=== PATIENT | female | born 1945 | race Caucasian/White ===

== ENCOUNTER 2016-11-01 13:25 | Outpatient (CLI) | payer MEDICARE, OTHER ==
--- NOTE | 2016-11-02 11:10 | Mammography Report ---
DIGITAL SCREENING MAMMOGRAM: 11/01/2016 CLINICAL INDICATION: A 71-year-old, for screening. COMPARISON: 01/2015, 11/2013, 11/2012, 05/2010, 07/2007, 07/2006. TECHNIQUE: Routine CC and MLO projections were obtained of the breasts. FINDINGS: The breasts again demonstrate scattered fibroglandular densities bilaterally. Punctate, ty pically benign calcifications are present. No suspicious masses, clustered microcalcifications, or re gions of architectural distortion are identified. IMPRESSION: BENIGN FINDINGS. RECOMMENDATION: ROUTINE ANNUAL SCREENING UNLESS OTHERWISE CLINICALLY INDICATED. BIRADS CATEGORY 2-BENIGN FINDINGS. STANDARD QUALIFYING STATEMENTS 1. This examination was reviewed with the aid of Computer-Aided Detection (CAD). 2. A negative or benign imaging report should not delay biopsy if clinically suspicious findings are present. Consider surgical consultation if warranted. More than 5% of cancers are not identified by i maging. 3. Dense breasts may obscure an underlying neoplasm. :9 JOB #: [id number] EXT JOB #:[id number]
== END 2016-11-01 13:26 | disposition home or self-care (01) ==
LOC: DI 13:25
PROVIDERS: ATTEND Obstetrics & Gynecology
DX: Z12.31 Encounter for screening mammogram for malignant neoplasm of breast (principal)
CPT/HCPCS: 77067

== ENCOUNTER 2017-02-02 08:00 | Outpatient (CLI) | payer MEDICARE, OTHER ==
[2017-02-02 13:15] LABS: BASOPHILS # (AUTO) 0.1 10^3/uL (0.0-0.1); BASOPHILS % (AUTO) 1.4 %; EOSINOPHILS # (AUTO) 0.2 10^3/uL (0.0-0.7); EOSINOPHILS % (AUTO) 3.3 %; HCT - HEMATOCRIT 42.8 % (37.0-47.0); HGB - HEMOGLOBIN 14.1 g/dL (12.0-16.0); LYMPHOCYTES # (AUTO) 2.1 10^3/uL (1.5-3.5); LYMPHOCYTES % (AUTO) 42.9 %; MEAN CORPUSCULAR HEMOGLOBIN 29.3 pg (27.0-31.0); MEAN CORPUSCULAR VOLUME 88.6 fL (81.0-99.0); MEAN PLATELET VOLUME 7.6 fL (7.9-10.8); MONOCYTES # (AUTO) 0.5 10^3/uL (0.0-1.0); MONOCYTES % (AUTO) 11.1 %; NEUTROPHILS % (AUTO) 41.3 %; NUCLEATED RED BLOOD CELLS AUTO 0.1 /100WBC; RED BLOOD COUNT 4.83 10^6/uL (4.20-5.40); RED CELL DISTRIBUTION WIDTH 14.1 % (12.0-15.0); UNCORRECTED WHITE BLOOD COUNT 4.9 x10^3/uL; WHITE BLOOD COUNT 4.9 x10^3/uL (4.8-10.8)
[2017-02-02 13:36] LABS: ALBUMIN/GLOBULIN RATIO 1.3 (1.0-2.2); BILIRUBIN,TOTAL 0.5 mg/dL (0.2-1.0); BUN - BLOOD UREA NITROGEN 12 mg/dL (6-20); CALCIUM 9.3 mg/dL (8.5-10.3); CARBON DIOXIDE - CO2 27 mmol/L (21-32); CHLORIDE 103 mmol/L (101-111); CHOL/HDL RATIO 3.4 (<4.4); CHOLESTEROL 228 mg/dL; CREATININE 0.7 mg/dL (0.4-1.0); GFR - MDRD 82 (>89); GLUCOSE 92 mg/dL (70-100); HDL CHOLESTEROL 67 mg/dL; LDL/HDL RATIO 2.1 (<4.4); POTASSIUM 4.1 mmol/L (3.5-5.0); SODIUM 136 mmol/L (135-145); TOTAL PROTEIN 7.5 g/dL (6.7-8.2); TRIGLYCERIDES 94 mg/dL; VLDL CHOLESTEROL 19 mg/dL
== END 2017-02-02 23:59 ==
LOC: LAB.WCP 08:00
PROVIDERS: ATTEND Family Medicine
DX: I10 Essential (primary) hypertension (principal); Z51.81 Encounter for therapeutic drug level monitoring
CPT/HCPCS: 36415; 80053; 80061; 84443; 85025

== ENCOUNTER 2017-02-28 14:58 | Outpatient (CLI) | payer MEDICARE, OTHER ==
[2017-02-28 19:28] LABS: BASOPHILS # (AUTO) 0.1 10^3/uL (0.0-0.1); BASOPHILS % (AUTO) 0.9 %; EOSINOPHILS % (AUTO) 0.3 %; HGB - HEMOGLOBIN 14.2 g/dL (12.0-16.0); LYMPHOCYTES % (AUTO) 29.6 %; MEAN CORPUSCULAR HEMOGLOBIN 28.6 pg (27.0-31.0); MEAN CORPUSCULAR HGB CONC 32.2 g/dL (32.0-36.0); MEAN CORPUSCULAR VOLUME 88.7 fL (81.0-99.0); MEAN PLATELET VOLUME 7.7 fL (7.9-10.8); MONOCYTES # (AUTO) 0.6 10^3/uL (0.0-1.0); NEUTROPHILS # (AUTO) 4.1 10^3/uL (1.5-6.6); NEUTROPHILS % (AUTO) 60.2 %; PLT - PLATELET COUNT 403 10^3/uL (130-450); RED BLOOD COUNT 4.98 10^6/uL (4.20-5.40); RED CELL DISTRIBUTION WIDTH 14.2 % (12.0-15.0); WHITE BLOOD COUNT 6.8 x10^3/uL (4.8-10.8)
[2017-02-28 19:31] LABS: ALBUMIN 4.4 g/dL (3.2-5.5); ALBUMIN/GLOBULIN RATIO 1.2 (1.0-2.2); BILIRUBIN,TOTAL 0.5 mg/dL (0.2-1.0); CALCIUM 9.9 mg/dL (8.5-10.3); CREATININE 0.7 mg/dL (0.4-1.0)
== END 2017-02-28 14:59 | disposition home or self-care (01) ==
LOC: LAB.WCP 14:58
PROVIDERS: ATTEND Physician Assistant Medical
DX: R07.9 Chest pain, unspecified (principal)
CPT/HCPCS: 36415; 80053; 84484; 85025

== ENCOUNTER 2017-07-11 08:00 | Outpatient (CLI) | payer MEDICARE, OTHER ==
[2017-07-11 21:25] LABS: H. PYLORIS ANTIGEN STL NEGATIVE (Negative)
== END 2017-07-11 08:01 | disposition home or self-care (01) ==
LOC: LAB.WCP 08:00
PROVIDERS: ATTEND Family Medicine
DX: R19.7 Diarrhea, unspecified (principal)
CPT/HCPCS: 81599; 83630; 87045; 87046; 87177; 87209; 87329; 87338; 87493

== ENCOUNTER 2017-09-13 12:04 | Day surgery (SDC) | payer MEDICARE, OTHER ==
[2017-09-13] MEDS ORDERED: LACTATED RINGERS 1,000 ML IV ONE ×2 (12:32→16:18)
[2017-09-13] MEDS ORDERED: fentaNYL 250 MCG/5 ML VIAL IVP ONE (15:15)
[2017-09-13 16:21] VITALS: BP 132/63
== END 2017-09-13 12:05 | disposition home or self-care (01) ==
LOC: SDS 12:04
PROVIDERS: ATTEND Internal Medicine Gastroenterology
PROC: 0DBL8ZX Excision of Transverse Colon, Via Natural or Artificial Opening Endoscopic, Diagnostic (ICD-10-PCS; 2017-09-13)
PROC: 0DBN8ZX Excision of Sigmoid Colon, Via Natural or Artificial Opening Endoscopic, Diagnostic (ICD-10-PCS; 2017-09-13)
PROC: 0DBP8ZX Excision of Rectum, Via Natural or Artificial Opening Endoscopic, Diagnostic (ICD-10-PCS; 2017-09-13)
PROC: 0DBM8ZX Excision of Descending Colon, Via Natural or Artificial Opening Endoscopic, Diagnostic (ICD-10-PCS; 2017-09-13)
PROC: 0DBK8ZX Excision of Ascending Colon, Via Natural or Artificial Opening Endoscopic, Diagnostic (ICD-10-PCS; principal; 2017-09-13 13:15)
DX: R19.7 Diarrhea, unspecified (principal); K52.9 Noninfective gastroenteritis and colitis, unspecified; I10 Essential (primary) hypertension; K21.9 Gastro-esophageal reflux disease without esophagitis
CPT/HCPCS: 45380; J3010; J7120

== ENCOUNTER 2017-09-18 08:46 | Outpatient (CLI) | payer MEDICARE, OTHER | END 2017-09-18 08:47 | disposition home or self-care (01) | LOC: LAB 08:46 | PROVIDERS: ATTEND Internal Medicine Gastroenterology | DX: R19.7 Diarrhea, unspecified (principal) | CPT/HCPCS: 36415; 82784; 83516 ==

== ENCOUNTER 2018-04-15 16:08 | Observation (INO) | payer MEDICARE, OTHER ==
[2018-04-15] MEDS ORDERED: METOPROLOL TARTRATE 50 MG TABLET PO STA (16:26)
[2018-04-15] MEDS ORDERED: NITROGLYCERIN SL 0.4 MG TABLET SL STA (16:26)
[2018-04-15] MEDS ORDERED: ASPIRIN CHEW 81 MG TABLET PO STA (16:26)
--- NOTE | 2018-04-15 16:29 | ED Physician Documentation ---
PD HPI CHEST PAIN - Stated complaint Stated Complaint: CP - Chief complaint Chief Complaint: Cardiac - History obtained from History obtained from: Patient - History of Present Illness Timing - onset: Today (This is a 73-year-old woman with history of hypertension but no cardiac issues who developed dull substernal chest pressure and left breast pressure without other radiation about 2 hours ago. Pain is pretty strong. It started with light activity around the house. She denies back pain, cough, shortness of breath, diaphoresis, or nausea.) Review of Systems Ten Systems: 10 systems reviewed and negative Constitutional: reports: Sweats. denies: Fever, Chills Nose: denies: Rhinorrhea / runny nose, Congestion Cardiac: denies: Palpitations, Pedal edema, Calf pain Respiratory: denies: Dyspnea, Cough PD PAST MEDICAL HISTORY - Past Medical History Cardiovascular: Hypertension Respiratory: None Endocrine/Autoimmune: None GI: GERD Psych: None Musculoskeletal: Osteoarthritis, Chronic back pain - Past Surgical History Past Surgical History: Yes Ortho: Arthroscopic surgery - Present Medications Home Medications: Ambulatory Orders Medication Instructions Recorded Confirmed Rabeprazole Sodium [Aciphex] 20 mg PO BID 01/26/13 09/12/17 Ranitidine HCl [Deprizine] 15 mg PO DAILY 01/26/13 09/12/17 Fexofenadine/Pseudoephedrine 1 each PO DAILY 09/12/17 09/12/17 [Elena-D 24 Hour Tablet] Losartan Potassium 50 mg PO DAILY 09/12/17 09/12/17 Multivit-Min/Iron Fum/Folic AC 1 each PO DAILY 09/12/17 09/12/17 [Xjpjs-Hfsiiix-Bqrgbjtr Tablet] Sucralfate [Carafate] 1 gm PO ACHS PRN 09/12/17 09/12/17 - Allergies Allergies/Adverse Reactions: Allergies Allergy/AdvReac Type Severity Reaction Status Date / Time pantoprazole [From Protonix] Allergy Mild Unknown Verified 09/13/17 12:45 gluten AdvReac Unknown Verified 09/13/17 12:45 - Social History Does the pt smoke?: No Smoking Status: Never smoker Does the pt drink ETOH?: No Does the pt have substance abuse?: No - Immunizations Immunizations are current?: Yes - POLST Patient has POLST: No PD ED PE NORMAL - Vitals Vital signs reviewed: Yes - General General: Alert and oriented X 3, No acute distress - HEENT HEENT: PERRL, EOMI - Neck Neck: Supple, no meningeal sign, No bony TTP - Cardiac Cardiac: RRR, No murmur - Respiratory Respiratory: No respiratory distress, Clear bilaterally - Abdomen Abdomen: Soft, Non tender - Back Back: No CVA TTP, No spinal TTP - Extremities Extremities: No edema, No calf tenderness / cord - Neuro Neuro: Alert and oriented X 3, Normal speech Results - Vitals Vitals: Vital Signs - 24 hr 04/15/18 16:24 Temperature 36.6 C Heart Rate 72 Respiratory 16 Rate Blood Pressure 145/80 H O2 Saturation 97 Oxygen O2 Source Room air - EKG (time done) 1620 Rate: Rate (enter#) (88) Rhythm: NSR (With premature ventricular contractions) Victor: LAD Intervals: Normal LA Ischemia: Q waves (anterior), Non specific changes. No: ST elevation c/w ischemia Computer interpretation: Agree with computer - Labs Labs: Laboratory Tests 04/15/18 04/15/18 04/15/18 16:36 16:36 16:36 WBC 9.2 RBC 4.96 Hgb 14.6 Hct 43.6 MCV 88.0 MCH 29.4 MCHC 33.4 RDW 14.9 Plt Count 325 MPV 7.0 L Neut # (Auto) 5.9 Lymph # (Auto) 2.5 [place] # (Auto) 0.7 Eos # (Auto) 0.1 Baso # (Auto) 0.1 Absolute Nucleated RBC 0.00 Nucleated RBC % 0.0 Sodium 134 L Potassium 3.7 Chloride 100 L Carbon Dioxide 26 Anion Gap 8.0 BUN 17 Creatinine 0.9 Estimated GFR (MDRD) 61 L Glucose 118 H Calcium 9.3 Total Bilirubin 0.4 AST 23 ALT 20 Alkaline Phosphatase 82 Total Creatine Kinase 71 CK-MB (CK-2) 2.4 Troponin I < 0.04 Total Protein 7.3 Albumin 4.0 Globulin 3.3 Albumin/Globulin Ratio 1.2 Lipase 34 - Rads (name of study) 1v chest Radiology: EMP read contemporaneously (NAD) PD MEDICAL DECISION MAKING - ED course ED course: This is a 73-year-old woman who presents with new any acutely concerning chest pain which improved but did not completely go away after nitroglycerin. She was also given aspirin and metoprolol in the department. Her EKG is relatively nonischemic and her initial biomarkers are negative. Given the time course she will need a formal rule out and I called the hospitalist for observation at 5:05 PM. Departure - Departure Disposition: ED Place in Observation Clinical Impression: Chest pain Qualifiers: Chest pain type: precordial pain Qualified Code(s): R07.2 - Precordial pain Condition: Stable
[2018-04-15 16:42] LABS: BASOPHILS # (AUTO) 0.1 10^3/uL (0.0-0.1); BASOPHILS % (AUTO) 0.6 %; EOSINOPHILS # (AUTO) 0.1 10^3/uL (0.0-0.7); HGB - HEMOGLOBIN 14.6 g/dL (12.0-16.0); LYMPHOCYTES # (AUTO) 2.5 10^3/uL (1.5-3.5); LYMPHOCYTES % (AUTO) 27.4 %; MEAN CORPUSCULAR HEMOGLOBIN 29.4 pg (27.0-31.0); MEAN CORPUSCULAR HGB CONC 33.4 g/dL (32.0-36.0); MONOCYTES # (AUTO) 0.7 10^3/uL (0.0-1.0); MONOCYTES % (AUTO) 7.2 %; NEUTROPHILS # (AUTO) 5.9 10^3/uL (1.5-6.6); NEUTROPHILS % (AUTO) 63.8 %; PLT - PLATELET COUNT 325 10^3/uL (130-450); RED BLOOD COUNT 4.96 10^6/uL (4.20-5.40); RED CELL DISTRIBUTION WIDTH 14.9 % (12.0-15.0); WHITE BLOOD COUNT 9.2 x10^3/uL (4.8-10.8)
[2018-04-15 16:54] LABS: ALBUMIN/GLOBULIN RATIO 1.2 (1.0-2.2); BILIRUBIN,TOTAL 0.4 mg/dL (0.2-1.0); CALCIUM 9.3 mg/dL (8.5-10.3); CREATININE 0.9 mg/dL (0.4-1.0); TOTAL PROTEIN 7.3 g/dL (6.7-8.2)
--- NOTE | 2018-04-15 16:58 | XRAY Report ---
Reason: chest pain Procedure Date: 04/15/2018 Accession Number: [id number] / [id number] Procedure: XR - Chest 1 View X-Ray CPT Code: 32009 FULL RESULT: EXAM: CHEST RADIOGRAPHY EXAM DATE: 04/15/2018 04:40 PM. CLINICAL HISTORY: Chest pain. COMPARISON: CHEST 2 VIEW 02/28/2017 3:07 PM. TECHNIQUE: 1 view. FINDINGS: Lungs/Pleura: Atelectasis or scarring left base similar to previous exam. No definite acute infiltrate, consolidation, effusion, or pneumothorax. Mediastinum: Within exam limitations, the cardiomediastinal contour is normal. Upper lobe vessels not distended. Other: Osteopenia, degenerative changes. IMPRESSION: No acute disease. RADIA
[2018-04-15 17:00] LABS: TROPONIN I < 0.04 ng/mL (<0.49)
[2018-04-15 17:02] LABS: CREATINE KINASE MB 2.4 ng/mL (0.6-6.3)
[2018-04-15] MEDS ORDERED: ACETAMINOPHEN 325 MG TABLET PO PRN (17:20)
[2018-04-15] MEDS ORDERED: ONDANSETRON 4 MG/2 ML VIAL IVP PRN (17:20)
[2018-04-15] MEDS ORDERED: ONDANSETRON ODT 4 MG TABLET TL PRN (17:20)
[2018-04-15] MEDS ORDERED: SODIUM CHLORIDE FLUSH 0.9% 10 ML SYRINGE IVP PRN (17:20)
[2018-04-15] MEDS ORDERED: TEMAZEPAM 15 MG CAPSULE PO PRN (17:20)
[2018-04-15] MEDS ORDERED: oxyCODONE 5 MG TABLET PO PRN (17:20)
[2018-04-15] MEDS ORDERED: NITROGLYCERIN SL 0.4 MG TABLET SL PRN (17:23)
[2018-04-15] MEDS ORDERED: ATORVASTATIN 40 MG TABLET PO SCH (21:00)
[2018-04-15] MEDS: SODIUM CHLORIDE FLUSH 0.9% 10 ML SYRINGE IVP SCH (23:50)
--- NOTE | 2018-04-16 00:34 | CONSULTATION NOTE ---
DATE OF SERVICE: 04/15/2018 Physician: Leila Mejía MD PRIMARY CARE PROVIDER: Bola Arcos MD. ADMITTING PROVIDER: Leila Mejía MD. CHIEF COMPLAINT: Chest pain. HISTORY OF PRESENT ILLNESS: She is a 73-year-old white female whose risk factors for coronary artery disease are age and hypertension. She has never had diabetes, is a nonsmoker, has a negative family. She does have documented reflux disease and that does give her chest pain. It is a central pain that radiates to either side of her chest and accompanied with almost a stabbing pain, reflux. She even had a stress test in her doctor's office seven to eight years ago for that type of chest pain. It was negative. Today she started having left-sided chest pain over her left breast. It started while she was doing light activity around the house. She has not had this type of chest pain before. There is no radiation to the jaw or shoulder. There is no radiation down the left arm. Denied nausea, diaphoresis. No shortness of breath or palpitations. In the recent few weeks, she has not been ill, she has not been coughing, there is no edema, no orthopnea. She has not had any recent travel. Her legs are not swollen. She was evaluated in the emergency room by Dr. Medina, where she was afebrile, normotensive, oxygenating normally. She had a negative physical exam, and an EKG that was normal. Initial troponin is less than 0.04. She is now placed in observation for rule-out HI. PAST MEDICAL HISTORY 1. Hypertension. 2. Chronic low back pain that is mild and intermittent. 3. Gastroesophageal reflux disease. 4. History of migraine headache. 5. Foot surgery to remove a benign tumor. 6. Chronic diarrhea for 13 weeks that was very severe. Colonoscopy in August 2017 showed her to have diffuse edema of the bowel, and a nonspecific colitis on pathology. That diarrhea has now gone away. 7. G2, P2. 8. Nonspecific dermatitis in the last year. Her food safety director has had her change her sheets, changed laundry detergent, use some topical creams and it is much better. She also takes fexofenadine for it. ALLERGIES 1. PANTOPRAZOLE. 2. GLUTEN. MEDICATIONS 1. Fexofenadine with Sudafed 1 tablet daily. 2. Losartan 50 mg daily. 3. Multivitamin with iron and folic acid daily. 4. Rabeprazole sustained release 20 mg b.i.d. 5. Ranitidine 50 mg daily. 6. Sucralfate 1 g p.o. before meals and at bedtime. SOCIAL HISTORY: She is from [place]. 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 She has been to her for 45 years, [place] She never smoked. She rarely drinks alcohol. Has no history of recreational substance abuse. FAMILY HISTORY: Dad at age 85 of an HI. Drove himself 7 miles to his doctor's office; the two steps to get into the office were too much, and he sat down on the steps. Finally got his wind back, stepped into the doctor's waiting room, and promptly . Mom at age 88 of a brain aneurysm. Ten siblings. They are all alive. One has diabetes, one has thyroid disease, and there are no other medical problems. Two children are completely healthy. REVIEW OF SYSTEMS CONSTITUTIONAL: She has had no recent weight changes, fevers, sweats or fatigue. HEENT: She wears glasses. Has already had cataract taken off. She has a postnasal drip at night. Causes her to clear her throat quite a bit. Otherwise, hears well, swallows well. No facial dysesthesias. PULMONARY: Cough all the time from the postnasal drip, but there is no phlegm, no shortness of breath, no change in cardiovascular endurance. Denies any chronic bronchitis or asthma problems. CARDIOVASCULAR: Chest pain is strictly from reflux disease in the past. This is a new chest pain, but again, review of systems as above. GASTROINTESTINAL: Diarrhea from this last summer has completely resolved. No blood in her stool. Up-to-date with colonoscopies. GENITOURINARY: No urgency, frequency, dysuria, hematuria, or flank pain. JOINTS: Really do not bother her very much. No effusions, no fractures. SKIN: Nonspecific contact dermatitis as above. No other moles or lesions. PSYCHIATRIC: Denies depression, anxiety. 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 PHYSICAL EXAMINATION VITAL SIGNS: She is examined in her room with her at the bedside. Temperature is 36.6, pulse is 79, blood pressure 156/97, respirations 20 and unlabored. She is 96% on room air. She is 5 feet 6 inches tall, 80.7 kg. GENERAL: She is an alert, oriented, pleasant female, who looks her stated age, well-groomed, well-nourished. HEAD AND NECK: Glasses are in place, pupils reactive, no facial asymmetry. Speech normal. Upper teeth slightly protuberant. Neck is supple without goiter, bruits or jugular venous distention. LUNGS: Clear to auscultation and percussion. No crackles, rhonchi or wheezing. CARDIAC: Exam shows PMI normally placed with a regular rate and rhythm. No murmur. ABDOMEN: Soft, nontender. No organomegaly. Normal bowel sounds. EXTREMITIES: Without clubbing, cyanosis, or edema. Good foot pulses. SKIN: Warm, dry, normal color. NEUROLOGIC: She is alert and oriented to person, place and time. Cranial nerves II-XII. Normal upper and lower body strength. No ataxia. LABORATORY DATA: White cell count 9.2, hemoglobin 14.6, hematocrit 43.6, platelets 325. Sodium 134, potassium 3.7, BUN 17, creatinine 0.9, GFR 61, random glucose 118. Troponin less than 0.04. Chest x-ray is without any acute cardiopulmonary changes. EKG has normal sinus rhythm with PVCs. Left axis deviation, poor R-wave progression. She does not have isoelectric changes until V5. This is being read as an old anteroseptal HI. ASSESSMENT/PLAN 1. Chest pain. This pain does seem typical of exertion, and fits her age group. Pain is relieved by sublingual nitroglycerin. PLAN: Observation stay. Attestation: The patient will be discharged within 96 hours. Rule out HI with serial cardiac enzymes. Statin given for tonight. Aspirin already given and will be given in the morning. Nuclear medicine Lexiscan ordered for tomorrow and nuclear medicine notified. 2. Hypertension. At this time controlled. She is 113-132 since she has gotten to the floor. She will get her losartan in the morning. 3. Coronary risk factor assessment. Check fasting lipid panel in the morning. Glucose is elevated, check A1c. 4. Deep vein thrombosis prophylaxis with UMM hose. 5. DO NOT RESUSCITATE status in the event of significant prolonged illness resulting in debility. TD: 04/15/2018 19:01 NATHALIE
[2018-04-16 04:51] LABS: CREATININE 0.8 mg/dL (0.4-1.0)
[2018-04-16] MEDS: SODIUM CHLORIDE FLUSH 0.9% 10 ML SYRINGE IVP SCH (08:41)
[2018-04-16] MEDS ORDERED: ASPIRIN EC 81 MG TABLET PO SCH (09:00)
[2018-04-16] MEDS ORDERED: LOSARTAN 50 MG TABLET PO SCH (09:00)
[2018-04-16] MEDS ORDERED: POLYETHYLENE GLYCOL 3350 17 GM PACKET PO SCH (09:00)
[2018-04-16] MEDS ORDERED: REGADENOSON 0.4 MG/5 ML SYRINGE IVP ONE ×2 (09:55→12:11)
--- NOTE | 2018-04-16 12:01 | CARDIAC PROCEDURE NOTE ---
DATE OF SERVICE: 04/16/2018 Physician: Donna Portillo MD INDICATION: Chest pain. CARDIAC RISK FACTORS: Postmenopausal status, family history of early heart disease, hypertension, unknown cholesterol status. DESCRIPTION OF PROCEDURE: After signing informed consent, the patient underwent a Lexiscan pharmaceutical stress test with nuclear myocardial perfusion imaging. RESTING HEART RATE: 58. PEAK HEART RATE: 102. RESTING BLOOD PRESSURE: 154/80. PEAK BLOOD PRESSURE: 150/68. Lexiscan was infused per protocol. The patient developed brief flushing and also had chest pressure across her entire chest, rated 3/10. This subsided in 3 minutes. 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 EKG AT PEAK: No ischemic changes by EKG criteria, rare PVCs. SUMMARY 1. The patient did have chest pain during pharmaceutical stress testing. 2. No ischemic changes by EKG criteria. 3. Nuclear images reported separately. cc: Bola Arcos MD TD: 04/16/2018 11:47 MTDD
--- NOTE | 2018-04-16 13:26 | Nuclear Medicine Report ---
Reason: chest pain Procedure Date: 04/16/2018 Accession Number: [id number] / [id number] Procedure: NM - Myocardial Perfusion STR/RST CPT Code: FULL RESULT: EXAM: SINGLE-ISOTOPE EXERCISE STRESS TEST. SINGLE-ISOTOPE AND ONE-DAY REST/STRESS MYOCARDIAL PERFUSION SCANS WITH TOMOGRAPHIC IMAGING, QUANTITATIVE ANALYSIS, WALL MOTION ANALYSIS AND CALCULATION OF EJECTION FRACTION. EXAM DATE: 04/16/2018 12:38 PM. CLINICAL HISTORY: Chest pain. COMPARISON: None. TECHNIQUE: A rest myocardial perfusion scan was done with tomography after the intravenous administration of 10.8 mCi Tc-99m sestamibi. After an appropriate delay, a treadmill exercise stress was performed according to department protocol. The patient exercised for 7 minutes and 16 seconds. The maximum heart rate was 102 bpm, which was 70% of the maximum predicted heart rate of 145 bpm. At approximately peak heart rate, 43.5 mCi of Tc-99m sestamibi was injected for stress myocardial perfusion scan. Motion correction was applied when appropriate. Gated tomographic images were obtained for wall motion analysis and computation of left ventricular ejection fraction. FINDINGS: Perfusion images: Left ventricular chamber size appears normal at rest and unchanged at stress. Fixed moderate size region of mildly to moderately reduced uptake involving the apical third of the anterior wall and anterior septum, probably breast attenuation artifact. Probable basal inferior wall diaphragmatic attenuation artifact. Otherwise no convincing fixed perfusion deficits. No convincing reversible perfusion deficits. SSS 2, SRS 0, SDS 2. Gated images: No convincing focal wall motion abnormality. Calculated left ventricular EDV 63 mL, ESV 11 mL. The left ventricular ejection fraction is estimated at 82% (normal > 50%). IMPRESSION: 1. No convincing reversible perfusion deficits to indicate stress-induced ischemia. 2. No convincing fixed perfusion deficits. Probable breast and diaphragmatic attenuation artifact as noted above. 3. Left ventricular ejection fraction of 82% (normal > 50%). RADIA
--- NOTE | 2018-04-16 15:17 | Discharge Plan ---
Discharge Plan Disposition: 01 Home, Self Care Condition: Stable Diet: Low Sodium Activity Restrictions: Activity as Tolerated Shower Restrictions: No Driving Restrictions: No Additional Instructions or Follow Up instructions: You were here to evaluate chest pain. The blood tests showed no heart attack and the stress test was negative for significant coronary blockages. Please see your PCP for follow-up and possibly more evaluation of the symptoms you had. No Smoking: If you smoke, Please STOP! Call for help. Follow-up with: Azul Fagan MD [Primary Care Provider] -
[2018-04-16 16:31] VITALS: BP 140/68
--- NOTE | 2018-04-24 08:27 | PROVIDER PROGRESS NOTE ---
Assessment/Plan - Problem List (1) Chest pain Qualifiers: Chest pain type: precordial pain Qualified Code(s): R07.2 - Precordial pain Assessment/Plan: No further CP and she had no CP during stress test. Treadmill stress test, at an adequate level of stress achieved, showed no reversible ischemia by nuclear myocardial perfusion imaging. I discussed this result with patient, and at bedside. Patient may be [facility] today. (2) Gastroesophageal reflux disease Assessment/Plan: She was told that her symptoms may have bveen her GERD. Advised follow-up with PCP for further evaluation and management, was at bedside. - Lab Result Fish Bone Diagrams: 04/15/18 16:36 04/16/18 04:37 Subjective - Subjective Patient Reports: Resting Comfortably, No Complaints Objective Vital Signs: Oxygen O2 Source Room air General: Alert, Oriented x3 HEENT: Mucous membr. moist/pink Neck: No JVD Neuro: Non Focal Cardiovascular: Regular rate, No murmurs Respiratory: No respiratory distress, Breath sounds nml Abdomen: Soft, No tenderness Extremities: No edema - Results Results: Laboratory Results WBC 9.2 x10^3/uL (4.8-10.8) 04/15/18 16:36 RBC 4.96 10^6/uL (4.20-5.40) 04/15/18 16:36 Hgb 14.6 g/dL (12.0-16.0) 04/15/18 16:36 Hct 43.6 % (37.0-47.0) 04/15/18 16:36 MCV 88.0 fL (81.0-99.0) 04/15/18 16:36 MCH 29.4 pg (27.0-31.0) 04/15/18 16:36 MCHC 33.4 g/dL (32.0-36.0) 04/15/18 16:36 RDW 14.9 % (12.0-15.0) 04/15/18 16:36 Plt Count 325 10^3/uL (130-450) 04/15/18 16:36 MPV 7.0 fL (7.9-10.8) L 04/15/18 16:36 Neut # (Auto) 5.9 10^3/uL (1.5-6.6) 04/15/18 16:36 Lymph # (Auto) 2.5 10^3/uL (1.5-3.5) 04/15/18 16:36 [place] # (Auto) 0.7 10^3/uL (0.0-1.0) 04/15/18 16:36 Eos # (Auto) 0.1 10^3/uL (0.0-0.7) 04/15/18 16:36 Baso # (Auto) 0.1 10^3/uL (0.0-0.1) 04/15/18 16:36 Absolute Nucleated RBC 0.00 x10^3/uL 04/15/18 16:36 Nucleated RBC % 0.0 /100WBC 04/15/18 16:36 Sodium 134 mmol/L (135-145) L 04/16/18 04:37 Potassium 3.9 mmol/L (3.5-5.0) 04/16/18 04:37 Chloride 101 mmol/L (101-111) 04/16/18 04:37 Carbon Dioxide 25 mmol/L (21-32) 04/16/18 04:37 Anion Gap 8.0 (6-13) 04/16/18 04:37 BUN 18 mg/dL (6-20) 04/16/18 04:37 Creatinine 0.8 mg/dL (0.4-1.0) 04/16/18 04:37 Estimated GFR (MDRD) 70 (>89) L 04/16/18 04:37 Glucose 104 mg/dL (70-100) H 04/16/18 04:37 Calcium 9.0 mg/dL (8.5-10.3) 04/16/18 04:37 Total Bilirubin 0.4 mg/dL (0.2-1.0) 04/15/18 16:36 AST 23 IU/L (10-42) 04/15/18 16:36 ALT 20 IU/L (10-60) 04/15/18 16:36 Alkaline Phosphatase 82 IU/L (42-121) 04/15/18 16:36 Total Creatine Kinase 71 IU/L (22-269) 04/15/18 16:36 CK-MB (CK-2) 2.4 ng/mL (0.6-6.3) 04/15/18 16:36 Troponin I < 0.04 ng/mL (<0.49) 04/16/18 04:37 Total Protein 7.3 g/dL (6.7-8.2) 04/15/18 16:36 Albumin 4.0 g/dL (3.2-5.5) 04/15/18 16:36 Globulin 3.3 g/dL (2.1-4.2) 04/15/18 16:36 Albumin/Globulin Ratio 1.2 (1.0-2.2) 04/15/18 16:36 Lipase 34 U/L (22-51) 04/15/18 16:36 - Procedures Procedures: Procedures EXCISION OF ASCENDING COLON, ENDO, DIAGN (09/13/17) EXCISION OF DESCENDING COLON, ENDO, DIAGN (09/13/17) EXCISION OF RECTUM, ENDO, DIAGN (09/13/17) EXCISION OF SIGMOID COLON, ENDO, DIAGN (09/13/17) EXCISION OF TRANSVERSE COLON, ENDO, DIAGN (09/13/17)
== END 2018-04-16 16:15 | disposition home or self-care (01) ==
LOC: ED 16:08 → OBS 17:20
PROVIDERS: ADMIT Specialist; ATTEND Internal Medicine
DX: R07.2 Precordial pain (principal); K21.9 Gastro-esophageal reflux disease without esophagitis; I25.10 Atherosclerotic heart disease of native coronary artery without angina pectoris; I10 Essential (primary) hypertension; R73.9 Hyperglycemia, unspecified; Z66 Do not resuscitate; Z82.49 Family history of ischemic heart disease and other diseases of the circulatory system
CPT/HCPCS: 36415; 71045; 78452; 80048; 80053; 82550; 82553; 83690; 84484; 85025; 93005; 93017; 99284; A9270; A9500; G0378; J2785; Q0162

== ENCOUNTER 2018-05-01 08:02 | Outpatient (CLI) | payer MEDICARE, OTHER ==
[2018-05-01 12:41] LABS: BASOPHILS % (AUTO) 0.7 %; EOSINOPHILS % (AUTO) 1.9 %; HGB - HEMOGLOBIN 14.1 g/dL (12.0-16.0); LYMPHOCYTES % (AUTO) 46.2 %; MEAN CORPUSCULAR HEMOGLOBIN 28.4 pg (27.0-31.0); MEAN CORPUSCULAR HGB CONC 32.7 g/dL (32.0-36.0); MEAN CORPUSCULAR VOLUME 86.9 fL (81.0-99.0); MEAN PLATELET VOLUME 7.8 fL (7.9-10.8); MONOCYTES % (AUTO) 10.3 %; NEUTROPHILS % (AUTO) 40.9 %; PLT - PLATELET COUNT 318 10^3/uL (130-450); RED BLOOD COUNT 4.96 10^6/uL (4.20-5.40); WHITE BLOOD COUNT 6.3 x10^3/uL (4.8-10.8)
[2018-05-01 12:43] LABS: ABNORMAL LYMPHS % (MANUAL) 0 %; BAND NEUTROPHILS % (MANUAL) 0 %
[2018-05-01 12:56] LABS: ALBUMIN 3.6 g/dL (3.2-5.5); ALBUMIN/GLOBULIN RATIO 1.1 (1.0-2.2); ALKALINE PHOSPHATASE 62 IU/L (42-121); ALT ALANINE AMINOTRANSFERASE 17 IU/L (10-60); AST ASPARTATE AMINOTRANSFERASE 24 IU/L (10-42); BILIRUBIN,TOTAL 0.8 mg/dL (0.2-1.0); BUN - BLOOD UREA NITROGEN 16 mg/dL (6-20); CARBON DIOXIDE - CO2 26 mmol/L (21-32); CHLORIDE 100 mmol/L (101-111); CHOL/HDL RATIO 2.6 (<4.4); CHOLESTEROL 191 mg/dL; CREATININE 0.8 mg/dL (0.4-1.0); GFR - MDRD 70 (>89); GLUCOSE 88 mg/dL (70-100); HDL CHOLESTEROL 74 mg/dL; LDL CHOLESTEROL,CALCULATED 102 mg/dL; LDL/HDL RATIO 1.4 (<4.4); SODIUM 135 mmol/L (135-145); TOTAL PROTEIN 6.8 g/dL (6.7-8.2); VLDL CHOLESTEROL 15 mg/dL
[2018-05-01 13:39] LABS: BASOPHILS # (MANUAL) 0.1 10^3/uL (0-0.1); BASOPHILS % (MANUAL) 1 %; DIFFERENTIAL COMMENT MANUAL DIFFERENTIAL; EOSINOPHILS # (MANUAL) 0.3 10^3/uL (0-0.7); LYMPHOCYTES # (MANUAL) 3.3 10^3/uL (1.5-3.5); LYMPHOCYTES % (MANUAL) 52 %; MONOCYTES # (MANUAL) 0.6 10^3/uL (0.0-1.0); NEUTROPHILS # (MANUAL) 2.1 10^3/uL (1.5-6.6); NEUTROPHILS % (MANUAL) 34 %; PLATELET ESTIMATE, MANUAL NORMAL (130-450,000) (NORMAL); PLATELET MORPHOLOGY NORMAL APPEARANCE (NORMAL); RBC MORPHOLOGY (MULTIPLE) NORMAL APPEARANCE (NORMAL)
== END 2018-05-01 08:03 | disposition home or self-care (01) ==
LOC: LAB.WCP 08:02
PROVIDERS: ATTEND Family Medicine
DX: I10 Essential (primary) hypertension (principal)
CPT/HCPCS: 36415; 80053; 80061; 83721; 85025

== ENCOUNTER 2018-06-03 16:42 | Outpatient (CLI) | payer MEDICARE, OTHER ==
--- NOTE | 2018-06-04 10:36 | Mammography Report ---
Reason: SCREENING MAMMO Procedure Date: 06/03/2018 Accession Number: [id number] / [id number] Procedure: VINAYAK - Screening Mammo w/Shola CPT Code: FULL RESULT: EXAM: Screening Mammo w/Shola DATE: 06/03/2018 5:26 PM CLINICAL HISTORY: TECHNIQUE: (B) - Bilateral CC and MLO views were obtained. COMPARISON screening examination. N: 11/01/2016, 02/16/2015 PARENCHYMAL PATTERN: (F) - The breasts demonstrate diffuse fatty replacement bilaterally. . FINDINGS: There are no suspicious masses, calcifications, or areas of distortion. IMPRESSION: Negative examination. BI-RADS category 1. RECOMMENDATION: (ANNUAL) - Recommend routine annual screening mammography. BI-RADS CATEGORY: (1) - Negative. STANDARD QUALIFYING STATEMENTS: 1. This examination was not reviewed with the aid of Computer-Aided Detection (CAD). 2. A negative or benign imaging report should not preclude biopsy if clinically suspicious findings are present. 3. Dense breasts may obscure an underlying neoplasm. 4. This examination was reviewed with the aid of 3D breast imaging (tomosynthesis).
== END 2018-06-03 16:43 | disposition home or self-care (01) ==
LOC: DI 16:42
DX: Z12.31 Encounter for screening mammogram for malignant neoplasm of breast (principal)
CPT/HCPCS: 77063; 77067

== ENCOUNTER 2018-08-28 08:00 | Outpatient (CLI) | payer MEDICARE, OTHER | END 2018-08-28 23:59 | disposition home or self-care (01) | LOC: LAB.R 08:00 | PROVIDERS: ATTEND Family Medicine | DX: N39.0 Urinary tract infection, site not specified (principal) | CPT/HCPCS: 87086 ==

== ENCOUNTER 2019-10-28 08:00 | Outpatient (CLI) | payer MEDICARE, OTHER ==
[2019-10-28 12:41] LABS: BASOPHILS # (AUTO) 0.1 10^3/uL (0.0-0.1); BASOPHILS % (AUTO) 0.9 %; EOSINOPHILS # (AUTO) 0.1 10^3/uL (0.0-0.7); EOSINOPHILS % (AUTO) 2.2 %; HGB - HEMOGLOBIN 13.9 g/dL (12.0-16.0); LYMPHOCYTES # (AUTO) 2.5 10^3/uL (1.5-3.5); LYMPHOCYTES % (AUTO) 38.2 %; MEAN CORPUSCULAR HGB CONC 31.4 g/dL (32.0-36.0); MEAN CORPUSCULAR VOLUME 92.3 fL (81.0-99.0); MEAN PLATELET VOLUME 9.6 fL (7.9-10.8); MONOCYTES # (AUTO) 0.7 10^3/uL (0.0-1.0); MONOCYTES % (AUTO) 10.9 %; NEUTROPHILS # (AUTO) 3.1 10^3/uL (1.5-6.6); NEUTROPHILS % (AUTO) 47.5 %; PLT - PLATELET COUNT 348 10^3/uL (130-450); RED CELL DISTRIBUTION WIDTH 14.3 % (12.0-15.0); WHITE BLOOD COUNT 6.4 x10^3/uL (4.8-10.8)
[2019-10-28 16:33] LABS: ALBUMIN 3.8 g/dL (3.2-5.5); ALBUMIN/GLOBULIN RATIO 1.2 (1.0-2.2); ALKALINE PHOSPHATASE 66 IU/L (42-121); ALT ALANINE AMINOTRANSFERASE 18 IU/L (10-60); AST ASPARTATE AMINOTRANSFERASE 21 IU/L (10-42); BUN - BLOOD UREA NITROGEN 11 mg/dL (6-20); CALCIUM 9.2 mg/dL (8.5-10.3); CARBON DIOXIDE - CO2 27 mmol/L (21-32); CHLORIDE 98 mmol/L (101-111); CHOL/HDL RATIO 3.9 (<4.4); CHOLESTEROL 243 mg/dL; CREATININE 0.8 mg/dL (0.4-1.0); GLUCOSE 83 mg/dL (70-100); HDL CHOLESTEROL 63 mg/dL; LDL CHOLESTEROL,CALCULATED 163 mg/dL; LDL/HDL RATIO 2.6 (<4.4); SODIUM 133 mmol/L (135-145); TOTAL PROTEIN 7.1 g/dL (6.7-8.2); VLDL CHOLESTEROL 17 mg/dL
== END 2019-10-28 23:59 | disposition home or self-care (01) ==
LOC: LAB.WCP 08:00
PROVIDERS: ATTEND Family Medicine
DX: I10 Essential (primary) hypertension (principal)
CPT/HCPCS: 36415; 80053; 80061; 83721; 84443; 85025

== ENCOUNTER 2019-10-30 08:00 | Outpatient (CLI) | payer MEDICARE, OTHER | END 2019-10-30 23:59 | disposition home or self-care (01) | LOC: LAB.WCP 08:00 | PROVIDERS: ATTEND Family Medicine | DX: R51 Headache (principal) | CPT/HCPCS: 36415; 85651; 86140 ==

== ENCOUNTER 2019-11-05 14:26 | Outpatient (CLI) | payer MEDICARE, OTHER ==
--- NOTE | 2019-11-06 07:56 | Mammography Report ---
BILATERAL DIGITAL SCREENING MAMMOGRAM 3D/2D: 11/05/2019 CLINICAL: Routine screening. Comparison is made to exams dated: 06/03/2018 mammogram, 11/01/2016 mammogram, 02/16/2015 mammogram, 1 mammogram, and 11/25/2012 mammogram - [facility]. The tissue of both paco sts is predominantly fatty. No significant masses, calcifications, or other findings are seen in either breast. There has been no significant interval change. IMPRESSION: NEGATIVE There is no mammographic evidence of malignancy. A 1 year screening mammogram is recommended. This exam was interpreted at Station ID: [id number]. NOTE: For mammograms, a report in lay terms will be sent to the patient. Approximately 15% of breast malignancies will not be visualized mammographically. In the management of a palpable breast mass, a negative mammogram must not discourage biopsy of a clinically suspicious lesion. Electronically Signed By: Marco A Barr M.D., jr/penrad:11/05/2019 15:22:36 ACR BI-RADS Category 1: Negative 3341F PARENCHYMAL PATTERN: (F) - The breast(s) demonstrate(s) diffuse fatty replacement. BI-RADS CATEGORY: (1) - 1 RECOMMENDATION: (ANNUAL) - Recommend routine annual screening mammography. [id number] 1 year screening LATERALITY: (B)
== END 2019-11-05 14:27 | disposition home or self-care (01) ==
LOC: DI.N 14:26
DX: Z12.31 Encounter for screening mammogram for malignant neoplasm of breast (principal)
CPT/HCPCS: 77063; 77067

== ENCOUNTER 2019-11-06 12:45 | Outpatient (CLI) | payer MEDICARE, OTHER ==
[2019-11-06] MEDS ORDERED: GADOBUTROL 7.5 MMOL/7.5 ML VIAL ONE (13:04)
[2019-11-06] MEDS ORDERED: GADOBUTROL 7.5 MMOL/7.5 ML VIAL IVP ONE (13:48)
--- NOTE | 2019-11-06 14:13 | MRI Report ---
PROCEDURE: Brain W/WO INDICATIONS: VISUAL CHANGES, HEADACHE CONTRAST: IV CONTRAST: Gadavist ml: 7.5 TECHNIQUE: Noncontrast axial T1 spin echo, axial T2 fast spin echo, sagittal and axial FLAIR, coronal T2 fast sp in echo, axial gradient echo, axial diffusion and ADC through the brain. After the administration of contrast, axial and coronal T1 spin echo with fat saturation through the brain. COMPARISON: Head CT dated 01.26.13. FINDINGS: Image quality: Excellent. CSF spaces: Basal cisterns are patent. No extra-axial fluid collections. Ventricles are normal in size and shape. Brain: No midline shift. No intracranial bleeds or masses. No abnormal intracranial enhancement. There is cerebral volume loss for age. The brainstem appears normal. Diffusion-weighted images demon strate no acute ischemic insults. No chronic ischemic insults. Normal intravascular flow voids are present. Skull and face: Calvarial marrow is normal in signal. Orbits appear normal. Sinuses: Mild mucosal thickening within the right inferior maxillary sinus. IMPRESSION: 1. Mild diffuse cervical volume loss. 2. No acute process. No recent infarct. 3. No explanation for visual changes nor headache. Reviewed by: Nelia Vieyra MD on 11/06/2019 2:11 PM PDT Approved by: Nelia Vieyra MD on 11/06/2019 2:11 PM PDT Station ID: [id number]
== END 2019-11-06 12:46 | disposition home or self-care (01) ==
LOC: DI 12:45
PROVIDERS: ATTEND Family Medicine
DX: H53.9 Unspecified visual disturbance (principal); R51 Headache
CPT/HCPCS: 70553; A9585

== ENCOUNTER 2020-11-22 11:20 | Outpatient (CLI) | payer MEDICARE, OTHER ==
[2020-11-22 18:12] LABS: BASOPHILS # (AUTO) 0.1 10^3/uL (0.0-0.1); BASOPHILS % (AUTO) 0.8 %; EOSINOPHILS # (AUTO) 0.1 10^3/uL (0.0-0.7); EOSINOPHILS % (AUTO) 1.4 %; HCT - HEMATOCRIT 43.2 % (37.0-47.0); HGB - HEMOGLOBIN 13.1 g/dL (12.0-16.0); LYMPHOCYTES # (AUTO) 2.1 10^3/uL (1.5-3.5); LYMPHOCYTES % (AUTO) 28.2 %; MEAN CORPUSCULAR HEMOGLOBIN 28.3 pg (27.0-31.0); MEAN CORPUSCULAR HGB CONC 30.3 g/dL (32.0-36.0); MEAN CORPUSCULAR VOLUME 93.3 fL (81.0-99.0); MEAN PLATELET VOLUME 9.3 fL (7.9-10.8); MONOCYTES # (AUTO) 0.6 10^3/uL (0.0-1.0); MONOCYTES % (AUTO) 7.9 %; NEUTROPHILS # (AUTO) 4.5 10^3/uL (1.5-6.6); NEUTROPHILS % (AUTO) 61.3 %; PLT - PLATELET COUNT 391 10^3/uL (130-450); RED BLOOD COUNT 4.63 10^6/uL (4.20-5.40); RED CELL DISTRIBUTION WIDTH 14.6 % (12.0-15.0); WHITE BLOOD COUNT 7.4 x10^3/uL (4.8-10.8)
[2020-11-22 18:34] LABS: ALBUMIN 4.1 g/dL (3.2-5.5); ALBUMIN/GLOBULIN RATIO 1.3 (1.0-2.2); ALKALINE PHOSPHATASE 72 IU/L (42-121); ALT ALANINE AMINOTRANSFERASE 18 IU/L (10-60); AST ASPARTATE AMINOTRANSFERASE 19 IU/L (10-42); BILIRUBIN,TOTAL 0.5 mg/dL (0.2-1.0); BUN - BLOOD UREA NITROGEN 15 mg/dL (6-20); CALCIUM 9.4 mg/dL (8.5-10.3); CARBON DIOXIDE - CO2 27 mmol/L (21-32); CHLORIDE 98 mmol/L (101-111); CHOL/HDL RATIO 3.3 (<4.4); CHOLESTEROL 216 mg/dL; CREATININE 0.7 mg/dL (0.4-1.0); GFR - MDRD 81 (>89); GLUCOSE 90 mg/dL (70-100); HDL CHOLESTEROL 65 mg/dL; LDL CHOLESTEROL,CALCULATED 135 mg/dL; LDL/HDL RATIO 2.1 (<4.4); POTASSIUM 4.4 mmol/L (3.5-5.0); SODIUM 136 mmol/L (135-145); TOTAL PROTEIN 7.2 g/dL (6.7-8.2); TRIGLYCERIDES 81 mg/dL; VLDL CHOLESTEROL 16 mg/dL
== END 2020-11-22 23:59 | disposition home or self-care (01) ==
LOC: LAB.WCP 11:20
PROVIDERS: ATTEND Family Medicine
DX: E87.1 Hypo-osmolality and hyponatremia (principal); E78.5 Hyperlipidemia, unspecified; I10 Essential (primary) hypertension
CPT/HCPCS: 36415; 80048; 80053; 80061; 83721; 85025

== ENCOUNTER 2020-11-26 15:10 | Outpatient (CLI) | payer MEDICARE, OTHER ==
--- NOTE | 2020-11-26 16:47 | Ultrasound Report ---
PROCEDURE: Duplex Lwr Ext Arterial Bilat INDICATIONS: PERIPHERAL ARTERY DISEASE TECHNIQUE: Color and pulse Doppler interrogation was performed of both lower extremity arterial systems, with im age documentation. COMPARISON: None FINDINGS: Right lower extremity: Common femoral artery: 129 cm/sec, with triphasic flow. Deep femoral artery: 84 cm/sec, with triphasic flow. Proximal superficial femoral artery: 116 cm/sec, with triphasic flow. Mid superficial femoral artery: 109 cm/sec, with triphasic flow. Distal superficial femoral artery: 104 cm/sec, with triphasic flow. Popliteal artery: 85 cm/sec, with triphasic flow. Posterior tibial artery: 75 cm/sec, with triphasic flow. Anterior tibial artery/dorsalis pedis: 75 cm/sec, with triphasic flow. Mccollum-scale imaging description: Widely patent vessels Left lower extremity: Common femoral artery: 106 cm/sec, with triphasic flow. Deep femoral artery: 79 cm/sec, with triphasic flow. Proximal superficial femoral artery: 100 cm/sec, with triphasic flow. Mid superficial femoral artery: 144 cm/sec, with triphasic flow. Distal superficial femoral artery: 91 cm/sec, with triphasic flow. Popliteal artery: 71 cm/sec, with triphasic flow. Posterior tibial artery: 96 cm/sec, with triphasic flow. Anterior tibial artery/dorsalis pedis: 89 cm/sec, with triphasic flow. Mccollum-scale imaging description: Widely patent vessels IMPRESSION: Unremarkable bilateral lower extremity duplex arterial ultrasound. Reviewed by: Anmol Diaz MD on 11/26/2020 4:46 PM PDT Approved by: Anmol Diaz MD on 11/26/2020 4:46 PM PDT Station ID: [id number]
== END 2020-11-26 15:11 | disposition home or self-care (01) ==
LOC: DI 15:10
PROVIDERS: ATTEND Family Medicine
DX: I73.9 Peripheral vascular disease, unspecified (principal)
CPT/HCPCS: 93925

== ENCOUNTER 2020-12-30 10:00 | Outpatient (CLI) | payer MEDICARE, OTHER ==
--- NOTE | 2020-12-30 12:49 | XRAY Report ---
PROCEDURE: Cervical Spine 2 View INDICATIONS: ACUTE NECK PAIN X 3 WEEKS TECHNIQUE: 3 view(s) of the cervical spine were acquired. COMPARISON: None. FINDINGS: Bones: Suspect compression fracture of T1 which is suboptimally visualized. The lateral masses of C1 appear intact on the odontoid view. No suspicious bony lesions. There is generalized diffuse disea se, moderate at C4-C5, and mild at C3-C4. Bilateral facet arthropathy is present, most pronounced at C4-C5 and C5-C6 on the right. Soft tissues: No prevertebral soft tissue swelling. IMPRESSION: 1. Question compression fracture of T1 which is suboptimally visualized. Recommend thoracic spine rad iograph for further evaluation. 2. Degenerative disc and facet disease in cervical spine as described. Reviewed by: Mer Tam MD on 12/30/2020 12:47 PM PST Approved by: Mer Tam MD on 12/30/2020 12:47 PM PST Station ID: [id number]
== END 2020-12-30 10:01 | disposition home or self-care (01) ==
LOC: DI.N 10:00
PROVIDERS: ATTEND Family Medicine
DX: M50.31 Other cervical disc degeneration, high cervical region (principal); M47.812 Spondylosis without myelopathy or radiculopathy, cervical region

== ENCOUNTER 2020-12-31 09:30 | Outpatient (CLI) | payer MEDICARE, OTHER ==
--- NOTE | 2020-12-31 13:48 | XRAY Report ---
PROCEDURE: Thoracic Spine 3 View INDICATIONS: Question compression fracture of T1 TECHNIQUE: 3 views of the thoracic spine were acquired. COMPARISON: None. FINDINGS: Bones: No fractures or dislocations. No suspicious bony lesions. Visualized ribs are intact. Multil evel disc space narrowing and endplate osteophyte formation. Soft tissues: No paravertebral stripe thickening. IMPRESSION: Multilevel degenerative disc disease. No acute fracture. No osseous lesion. If symptoms and/or clinic al suspicion for pathology continue, further assessment with repeat plain films, or advanced imaging (e.g., CT, MRI, or bone scan) is recommended for further assessment. Reviewed by: Nelia Vieyra MD on 12/31/2020 1:46 PM PST Approved by: Nelia Vieyra MD on 12/31/2020 1:46 PM PST Station ID: [id number]
== END 2020-12-31 09:31 | disposition home or self-care (01) ==
LOC: DI.N 09:30
PROVIDERS: ATTEND Family Medicine
DX: M51.34 Other intervertebral disc degeneration, thoracic region (principal)

== ENCOUNTER 2021-03-14 08:54 | Outpatient (CLI) | payer MEDICARE, OTHER ==
[2021-03-14 09:16] LABS: CREATININE 0.8 mg/dL (0.4-1.0)
[2021-03-14] MEDS ORDERED: GADOBUTROL 7.5 MMOL/7.5 ML VIAL ONE (10:34)
[2021-03-14] MEDS ORDERED: GADOBUTROL 7.5 MMOL/7.5 ML VIAL IVP ONE (13:35)
--- NOTE | 2021-03-14 14:51 | MRI Report ---
PROCEDURE: Cervical Spine W/WO INDICATIONS: ADENOCARCINOMA OF ENDOMETRIUM, NECK PAIN CONTRAST: IV CONTRAST: Gadavist ml: 7.5 TECHNIQUE: Noncontrast sagittal T1 spin echo and T2 fast spin echo, sagittal STIR, sagittal PD fast spin echo, f oraminal oblique sagittal T2 fast spin echo, axial gradient echo or T2 fast spin echo through the cer vical spine. After the administration of contrast, sagittal and axial T1 spin echo with fat saturati on through the cervical spine. COMPARISON: Cervical spine x-ray series 12/30/2020. FINDINGS: Image quality: Excellent. Alignment and curvature: There is normal bony alignment. Marrow: Mild Modic type II reactive endplate changes noted adjacent to the C5-C6 disc. Spinal cord: Visualized spinal cord is normal in size, without white matter lesions. No suspicious intramedullary enhancement. No cerebellar tonsillar herniation. Paraspinous soft tissues: No paravertebral masses or suspicious enhancement. C2-C3: Loss of disc signal. No central stenosis. No neural foraminal narrowing. No neural compressio n. C3-C4: Loss of disc signal and height. Mild, diffuse disc bulge. Moderate narrowing of the central canal. Mild bilateral facet and uncovertebral hypertrophy. Moderate right and mild left neural forami nal narrowing. No neural compression. C4-C5: Loss of disc signal. Mild, diffuse disc bulge. Mild narrowing of the central canal. Mild bila teral facet and uncovertebral hypertrophy. Severe right and moderate left neural foraminal narrowing with slight compression of the exiting right C5 nerve root. C5-C6: Loss of disc signal and height. Moderate, diffuse disc bulge. Moderate to severe narrowing of the central canal with slight compression of the cervical spinal cord.. Mild bilateral facet and unco vertebral joint hypertrophy. Severe bilateral neural foraminal narrowing with compression of the exit ing C6 nerve roots. C6-C7: Loss of disc signal. Mild, diffuse disc bulge. Mild bilateral facet hypertrophy. Mild narrowi ng of the central canal. Mild bilateral neural foraminal narrowing. No neural compression. C7-T1: Loss of disc signal. Mild, diffuse disc bulge. Mild bilateral facet hypertrophy. Mild narrowi ng of the central canal. No neural foraminal narrowing. No neural compression.. IMPRESSION: 1. Multilevel degenerative disease. 2. Multilevel facet and uncovertebral arthropathy. 3. Moderate to severe C5-C6 central canal narrowing with slight compression of the cervical spinal co rd. 4. Severe right C4-C5 neural foraminal narrowing with compression of the exiting right C5 nerve root. Severe bilateral C5-C6 neural foraminal narrowing with compression of the exiting bilateral C6 nerve roots. 5. No suspicious postcontrast enhancement or other evidence of cervical spine metastatic disease. Reviewed by: Leana Avelar MD, PhD on 03/14/2021 2:50 PM PST Approved by: Leana Avelar MD, PhD on 03/14/2021 2:50 PM PST Station ID: [id number]
== END 2021-03-14 08:55 | disposition home or self-care (01) ==
LOC: DI 08:54
PROVIDERS: ATTEND Family Medicine
DX: C54.1 Malignant neoplasm of endometrium (principal); M47.812 Spondylosis without myelopathy or radiculopathy, cervical region; M50.31 Other cervical disc degeneration, high cervical region; M48.02 Spinal stenosis, cervical region; M47.813 Spondylosis without myelopathy or radiculopathy, cervicothoracic region; M48.03 Spinal stenosis, cervicothoracic region
CPT/HCPCS: 36415; 72156; 82565; A9585

== ENCOUNTER 2021-06-28 12:44 | Outpatient (CLI) | payer MEDICARE, OTHER ==
[2021-06-28 13:06] LABS: CREATININE 0.8 mg/dL (0.4-1.0)
[2021-06-28] MEDS ORDERED: GADOBUTROL 10 MMOL/10 ML VIAL ONE (14:52)
--- NOTE | 2021-06-28 16:15 | MRI Report ---
PROCEDURE: Brain W/WO INDICATIONS: HEADACHE, FAM HIST OF ANEURYSM CONTRAST: IV CONTRAST: Gadavist ml: 9 TECHNIQUE: Noncontrast axial T1 spin echo, axial T2 fast spin echo, sagittal and axial FLAIR, coronal T2 fast sp in echo, axial gradient echo, axial diffusion and ADC through the brain. After the administration of contrast, axial and coronal T1 spin echo with fat saturation through the brain. COMPARISON: None. FINDINGS: Image quality: Excellent. CSF spaces: Basal cisterns are patent. No extra-axial fluid collections. Ventricles are normal in size and shape. Brain: No mass effect or midline shift. Mild global cerebral volume loss for age. Mild chronic microv ascular ischemic changes. No unexpected intracranial susceptibility or enhancement. No restricted dif fusion. Skull and face: Calvarial marrow is normal in signal. Orbits appear normal. Sinuses: Sinuses and mastoids predominantly clear. IMPRESSION: Mottled cerebral volume loss and chronic microvascular ischemic change. Otherwise unremarkable MRI of the brain. Reviewed by: Marco A Barr MD on 06/28/2021 4:14 PM PDT Approved by: Marco A Barr MD on 06/28/2021 4:14 PM PDT Station ID: [id number]
--- NOTE | 2021-06-28 21:21 | MRI Report ---
PROCEDURE: Angio Brain W/O (MRA) INDICATIONS: HEADACHE, FAM HIST OF ANEURYSM TECHNIQUE: Noncontrast axial 3-D [id number] MR angiogram, with 3-dimensional maximum intensity projection (M IP) reformats of the internal carotid arteries and posterior circulation then performed. COMPARISON: None. FINDINGS: Image quality: Excellent. Anterior circulation: Intracranial internal carotid arteries demonstrate normal size and intralumina l flow signal. The flow within the paired anterior cerebral arteries is normal and symmetric. The f low within the middle cerebral arteries is normal and symmetric. The anterior communicating artery i s seen. No stenoses, occlusions, or aneurysms. Posterior circulation: Visualized portions of the vertebral arteries demonstrate normal caliber, and join to form a normal appearing basilar artery. The flow within the posterior cerebral arteries is normal and symmetric. No stenoses, occlusions, or aneurysms. IMPRESSION: No intracranial aneurysm or hemodynamically significant narrowing of the major intracranial arterial circulation. Reviewed by: Marco A Barr MD on 06/28/2021 9:20 PM PDT Approved by: Marco A Barr MD on 06/28/2021 9:20 PM PDT Station ID: [id number]
== END 2021-06-28 12:45 | disposition home or self-care (01) ==
LOC: DI 12:44
PROVIDERS: ATTEND Family Medicine
DX: G44.89 Other headache syndrome (principal); Z82.0 Family history of epilepsy and other diseases of the nervous system; G31.89 Other specified degenerative diseases of nervous system; I67.82 Cerebral ischemia
CPT/HCPCS: 36415; 70544; 70553; 82565; A9585

== ENCOUNTER 2021-10-26 08:46 | Outpatient (CLI) | payer MEDICARE, OTHER ==
[2021-10-26 12:49] LABS: BASOPHILS # (AUTO) 0.1 10^3/uL (0.0-0.1); BASOPHILS % (AUTO) 1.1 %; EOSINOPHILS # (AUTO) 0.2 10^3/uL (0.0-0.7); EOSINOPHILS % (AUTO) 3.3 %; HCT - HEMATOCRIT 43.1 % (37.0-47.0); HGB - HEMOGLOBIN 13.6 g/dL (12.0-16.0); LYMPHOCYTES # (AUTO) 2.5 10^3/uL (1.5-3.5); MEAN CORPUSCULAR HEMOGLOBIN 28.3 pg (27.0-31.0); MEAN CORPUSCULAR HGB CONC 31.6 g/dL (32.0-36.0); MEAN CORPUSCULAR VOLUME 89.8 fL (81.0-99.0); MEAN PLATELET VOLUME 9.6 fL (7.9-10.8); MONOCYTES # (AUTO) 0.6 10^3/uL (0.0-1.0); MONOCYTES % (AUTO) 10.3 %; NEUTROPHILS # (AUTO) 2.2 10^3/uL (1.5-6.6); NEUTROPHILS % (AUTO) 40.1 %; PLT - PLATELET COUNT 350 10^3/uL (130-450); RED CELL DISTRIBUTION WIDTH 14.6 % (12.0-15.0); WHITE BLOOD COUNT 5.5 x10^3/uL (4.8-10.8)
[2021-10-26 13:24] LABS: ALBUMIN/GLOBULIN RATIO 1.2 (1.0-2.2); ALKALINE PHOSPHATASE 60 IU/L (42-121); ALT ALANINE AMINOTRANSFERASE 17 IU/L (10-60); AST ASPARTATE AMINOTRANSFERASE 21 IU/L (10-42); BILIRUBIN,TOTAL 0.6 mg/dL (0.2-1.0); BUN - BLOOD UREA NITROGEN 16 mg/dL (6-20); CALCIUM 9.3 mg/dL (8.5-10.3); CARBON DIOXIDE - CO2 26 mmol/L (21-32); CHLORIDE 98 mmol/L (101-111); CHOL/HDL RATIO 3.3 (<4.4); CHOLESTEROL 194 mg/dL; CREATININE 0.8 mg/dL (0.4-1.0); GFR - MDRD 69 (>89); GLUCOSE 84 mg/dL (70-100); HDL CHOLESTEROL 58 mg/dL; LDL CHOLESTEROL,CALCULATED 119 mg/dL; LDL/HDL RATIO 2.1 (<4.4); POTASSIUM 4.1 mmol/L (3.5-5.0); SODIUM 132 mmol/L (135-145); TOTAL PROTEIN 7.3 g/dL (6.7-8.2); TRIGLYCERIDES 84 mg/dL; VLDL CHOLESTEROL 17 mg/dL
== END 2021-10-26 08:47 | disposition home or self-care (01) ==
LOC: LAB.N 08:46
PROVIDERS: ATTEND Physician Assistant
DX: I10 Essential (primary) hypertension (principal); Z51.81 Encounter for therapeutic drug level monitoring; E78.5 Hyperlipidemia, unspecified
CPT/HCPCS: 36415; 80053; 80061; 83721; 85025

== ENCOUNTER 2021-11-02 11:30 | Outpatient (CLI) | payer MEDICARE, OTHER ==
--- NOTE | 2021-11-03 12:54 | Mammography Report ---
BILATERAL DIGITAL SCREENING MAMMOGRAM 3D/2D: 11/02/2021 CLINICAL: Routine screening. Comparison is made to exams dated: 11/05/2019 mammogram, 06/03/2018 mammogram, 11/01/2016 mammogram, mammogram, 12/04/2013 mammogram, and 11/25/2012 mammogram - [facility]. There are scattered areas of fibroglandular density in both breasts (category b / 25%-50% glandular t issue). No significant masses, calcifications, or other findings are seen in either breast. There has been no significant interval change. IMPRESSION: NEGATIVE There is no mammographic evidence of malignancy. A 1 year screening mammogram is recommended. Based on the Tyrer Cuzick model (a risk assessment model) the patients lifetime risk is 2.0% and her 10 year risk is 0.0%. According to the ACR, ACS, and NCCN guidelines, an annual breast MRI exam haim g with mammogram is recommended if the patients lifetime risk is 20% or greater. This exam was interpreted at Station ID: [id number]. NOTE: For mammograms, a report in lay terms will be sent to the patient. Approximately 15% of breast malignancies will not be visualized mammographically. In the management of a palpable breast mass, a negative mammogram must not discourage biopsy of a clinically suspicious lesion. Electronically Signed By: Luz chou/theo:11/02/2021 14:26:31 ACR BI-RADS Category 1: Negative 3341F PARENCHYMAL PATTERN: (A) - The breast(s) demonstrate(s) scattered fibroglandular densities. BI-RADS CATEGORY: (1) - 1 RECOMMENDATION: (ANNUAL) - Recommend routine annual screening mammography. [id number] 1 year screening LATERALITY: (B)
== END 2021-11-02 11:31 | disposition home or self-care (01) ==
LOC: DI.N 11:30
PROVIDERS: ATTEND Physician Assistant
DX: Z12.31 Encounter for screening mammogram for malignant neoplasm of breast (principal)

== ENCOUNTER 2022-10-24 08:27 | Outpatient (CLI) | payer MEDICARE, OTHER ==
[2022-10-24 12:09] LABS: BASOPHILS # (AUTO) 0.1 10^3/uL (0.0-0.1); BASOPHILS % (AUTO) 1.5 %; EOSINOPHILS # (AUTO) 0.2 10^3/uL (0.0-0.7); EOSINOPHILS % (AUTO) 3.5 %; HCT - HEMATOCRIT 42.1 % (37.0-47.0); HGB - HEMOGLOBIN 13.6 g/dL (12.0-16.0); LYMPHOCYTES # (AUTO) 1.9 10^3/uL (1.5-3.5); MEAN CORPUSCULAR HEMOGLOBIN 29.2 pg (27.0-31.0); MEAN CORPUSCULAR HGB CONC 32.3 g/dL (32.0-36.0); MEAN CORPUSCULAR VOLUME 90.5 fL (81.0-99.0); MEAN PLATELET VOLUME 9.3 fL (7.9-10.8); MONOCYTES # (AUTO) 0.6 10^3/uL (0.0-1.0); MONOCYTES % (AUTO) 12.1 %; NEUTROPHILS # (AUTO) 2.1 10^3/uL (1.5-6.6); NEUTROPHILS % (AUTO) 42.9 %; PLT - PLATELET COUNT 338 10^3/uL (130-450); RED BLOOD COUNT 4.65 10^6/uL (4.20-5.40); RED CELL DISTRIBUTION WIDTH 14.2 % (12.0-15.0); WHITE BLOOD COUNT 4.8 x10^3/uL (4.8-10.8)
[2022-10-24 13:13] LABS: ALBUMIN 3.9 g/dL (3.2-5.5); ALBUMIN/GLOBULIN RATIO 1.4 (1.0-2.2); ALKALINE PHOSPHATASE 75 IU/L (42-121); ALT ALANINE AMINOTRANSFERASE 11 IU/L (10-60); AST ASPARTATE AMINOTRANSFERASE 16 IU/L (10-42); BILIRUBIN,TOTAL 0.5 mg/dL (0.2-1.0); BUN - BLOOD UREA NITROGEN 16 mg/dL (6-20); CALCIUM 9.5 mg/dL (8.5-10.3); CARBON DIOXIDE - CO2 29 mmol/L (21-32); CHLORIDE 98 mmol/L (101-111); CHOL/HDL RATIO 3.1 (<4.4); CHOLESTEROL 177 mg/dL; CREATININE 0.8 mg/dL (0.6-1.3); GFR - MDRD 69 (>89); GLUCOSE 93 mg/dL (74-104); HDL CHOLESTEROL 58 mg/dL; LDL CHOLESTEROL,CALCULATED 103 mg/dL; LDL/HDL RATIO 1.8 (<4.4); SODIUM 131 mmol/L (135-145); TOTAL PROTEIN 6.6 g/dL (6.4-8.9); TRIGLYCERIDES 82 mg/dL (48-352); VLDL CHOLESTEROL 16 mg/dL
[2022-10-24 13:18] LABS: THYROID STIMULATING HORMONE 1.04 uIU/mL (0.34-5.60)
== END 2022-10-24 08:28 | disposition home or self-care (01) ==
LOC: LAB.N 08:27
PROVIDERS: ATTEND Physician Assistant
DX: I10 Essential (primary) hypertension (principal); E78.5 Hyperlipidemia, unspecified
CPT/HCPCS: 36415; 80053; 80061; 83721; 84443; 85025

== ENCOUNTER 2023-02-22 08:00 | Outpatient (CLI) | payer MEDICARE, OTHER | END 2023-02-22 23:59 | disposition home or self-care (01) | LOC: LAB 08:00 | PROVIDERS: ATTEND Physician Assistant | DX: R30.0 Dysuria (principal) | CPT/HCPCS: 87077; 87086; 87181 ==

== ENCOUNTER 2023-11-10 21:06 | Emergency (ER) | payer MEDICARE, OTHER ==
--- NOTE | 2023-11-10 22:25 | ED Physician Documentation ---
History of Present Illness - Stated complaint Stated Complaint: HIGH BP - Chief complaint Chief Complaint: General - History obtained from History obtained from: Patient - Additonal information Additional information: 78-year-old female with history of acid reflux, hypertension, osteoarthritis presents for evaluation of elevated blood pressure readings at home. Patient states that after doing work in her garden this afternoon she noticed some reflux symptoms and a low-grade headache. Patient states that symptoms persisted after dinner and so she decided to check her blood pressure. She states that her blood pressure normally is 140-150 systolic. Using her 's blood pressure cuff it was as high as 200 systolic. Patient then became concerned that these were "stroke level" blood pressures and presented to the ER for evaluation. Patient has not taken her nightly blood pressure medications. Review of Systems Constitutional: denies: Fever, Chills Ears: denies: Loss of hearing, Ear pain, Drainage/discharge Cardiac: reports: Chest pain / pressure (reflux) Respiratory: denies: Dyspnea, Cough, Wheezing GI: denies: Abdominal Pain, Nausea, Vomiting, Constipation, Diarrhea Neurologic: reports: Headache. denies: Generalized weakness, Focal weakness, Numbness, Syncope, Seizure PD PAST MEDICAL HISTORY - Past Medical History Past Medical History: Yes Cardiovascular: Hypertension Respiratory: None Neuro: None Endocrine/Autoimmune: None GI: GERD : None HEENT: Chronic vision loss Psych: None Musculoskeletal: Osteoarthritis, Chronic back pain Derm: None - Past Surgical History Past Surgical History: Yes Ortho: Arthroscopic surgery - Present Medications Home Medications: Ambulatory Orders Medication Instructions Recorded Confirmed Rabeprazole Sodium [Aciphex] 20 mg PO DAILY 01/26/13 04/16/18 Ranitidine HCl [Deprizine] 30 mg PO QPM 01/26/13 04/16/18 Fexofenadine/Pseudoephedrine 1 each PO DAILY 09/12/17 04/16/18 [Elena-D 24 Hour Tablet] Losartan Potassium 50 mg PO QPM 09/12/17 04/16/18 Multivit-Min/Iron Fum/Folic AC 1 each PO DAILY 09/12/17 04/16/18 [Ebwes-Dztmzyp-Sxwikmbs Tablet] Sucralfate [Carafate] 1 gm PO ACHS PRN 09/12/17 04/16/18 Doxycycline Monohydrate 50 mg PO DAILY 04/16/18 04/16/18 metroNIDAZOLE [Metronidazole] 1 applic TOP BID 04/16/18 04/16/18 - Allergies Allergies/Adverse Reactions: Allergies Allergy/AdvReac Type Severity Reaction Status Date / Time pantoprazole [From Protonix] Allergy Mild Unknown Verified 09/13/17 12:45 gluten AdvReac Unknown Verified 09/13/17 12:45 - Social History Does the pt smoke?: No Smoking Status: Never smoker Does the pt drink ETOH?: No Does the pt have substance abuse?: No - Immunizations Immunizations are current?: Yes - POLST Patient has POLST: No PD ED PE NORMAL - Vitals Vital signs reviewed: Yes - General General: Alert and oriented X 3, No acute distress, Well developed/nourished - Cardiac Cardiac: RRR, Strong equal pulses - Respiratory Respiratory: No respiratory distress, Clear bilaterally - Abdomen Abdomen: Soft, Non tender, Non distended - Derm Derm: Normal color, Warm and dry, No rash - Extremities Extremities: No deformity, No tenderness to palpate, Normal ROM s pain, No edema - Neuro Neuro: Alert and oriented X 3, director process 2-12 intact, No motor deficit, Normal speech Results - Vitals Vitals: Vital Signs - 24 hr 11/10/23 11/10/23 11/10/23 21:11 22:28 22:56 Temperature 35.7 C L Heart Rate 90 83 83 Respiratory 18 20 18 Rate Blood Pressure 202/130 H 191/117 H 187/98 H O2 Saturation 96 96 95 11/10/23 23:52 Temperature 35.7 C L Heart Rate 90 Respiratory 20 Rate Blood Pressure 171/94 H O2 Saturation 97 Oxygen O2 Source Room air - Labs Labs: Laboratory Tests 11/10/23 11/10/23 11/10/23 22:29 22:51 22:51 WBC 7.9 RBC 4.80 Hgb 14.0 Hct 43.5 MCV 90.6 MCH 29.2 MCHC 32.2 RDW 14.2 Plt Count 326 MPV 8.7 Neut # (Auto) 4.6 Lymph # (Auto) 2.4 [place] # (Auto) 0.7 Eos # (Auto) 0.2 Baso # (Auto) 0.1 Absolute Nucleated RBC 0.00 Nucleated RBC % 0.0 Sodium 136 Potassium 3.9 Chloride 99 L Carbon Dioxide 28 Anion Gap 9.0 BUN 14 Creatinine 0.8 Estimated GFR (MDRD) 69 L Glucose 106 H Calcium 10.1 Total Bilirubin 0.4 AST 17 ALT 10 Alkaline Phosphatase 67 Troponin I High Sens 5.5 Total Protein 7.5 Albumin 4.2 Globulin 3.3 Albumin/Globulin Ratio 1.3 Lipase 20 Urine Color LIGHT YELLOW Urine Clarity CLEAR Urine pH 7.0 Ur Specific Leiv[place] 1.010 Urine Protein NEGATIVE Urine Glucose (UA) NEGATIVE Urine Ketones NEGATIVE Urine Occult Blood NEGATIVE Urine Nitrite NEGATIVE Urine Bilirubin NEGATIVE Urine Urobilinogen 0.2 (NORMAL) Ur Leukocyte Esterase NEGATIVE Ur Microscopic Review NOT INDICATED Urine Culture Comments NOT INDICATED PD Medical Decision Making - ED course Complexity details: reviewed old records, reviewed results, re-evaluated patient, considered differential, d/w patient ED course: Well-appearing patient with elevated blood pressure readings at home. Also stating that she has had a low-grade headache and reflux sensation since approximately noon today. EKG normal sinus rhythm without concerning findings, not significantly changed compared to EKG from 2019. Patient denies history of heart disease. After patient placed in ED bed blood pressure slowly went back down to normal limits without any medication administration. Patient has also not taken her nightly blood pressure medications. Since patient is complaining of acid reflux sensation and reflux can be an ACS mimic blood work will be ordered. Patient has no neurologic symptoms and is not complaining of worse headache of life. Laboratory work is reviewed, unremarkable. Troponin negative. Patient has had symptoms for greater than 4 hours, no indication for repeat imaging at this time. Patient's blood pressure has remained decreased from her triage blood pressure without any additional medications given in the emergency department. Patient counseled on lab and imaging findings, recommended that she continue her normal blood pressure medications. She was advised to have close follow-up with her primary care doctor. ED return precautions discussed at bedside. Departure - Departure Disposition: Home, Self Care Clinical Impression: Hypertension Condition: Stable Instructions: Hypertension Control, ED GERD Comments: Your blood work, EKG, and chest x-ray were normal today. There is no sign of damage to your organs from the high blood pressure. At home you may take an ewji-zbg-rkprbsy antacid such as Tums, Pepto-Bismol, or Pepcid for relief. For headache you may take Tylenol as needed. Continue to take your home blood pressure medications as prescribed. Follow-up with your primary care doctor Forms: PCP List Discharge Date/Time: 11/10/23 23:59
[2023-11-10 22:37] LABS: BILIRUBIN,URINE NEGATIVE (NEGATIVE); GLUCOSE, URINE (UA) NEGATIVE (NEGATIVE); KETONES,URINE (UA) NEGATIVE (NEGATIVE); LEUKOCYTE ESTERASE, URINE NEGATIVE (NEGATIVE); NITRITE,URINE NEGATIVE (NEGATIVE); OCCULT BLOOD,URINE NEGATIVE (NEGATIVE); PROTEIN,URINE NEGATIVE (NEGATIVE); UROBILINOGEN,URINE 0.2 (NORMAL) E.U./dL (NORMAL)
[2023-11-10 22:40] LABS: CLARITY,URINE CLEAR (CLEAR)
[2023-11-10 22:58] LABS: BASOPHILS # (AUTO) 0.1 10^3/uL (0.0-0.1); BASOPHILS % (AUTO) 0.9 %; EOSINOPHILS # (AUTO) 0.2 10^3/uL (0.0-0.7); EOSINOPHILS % (AUTO) 2.1 %; HCT - HEMATOCRIT 43.5 % (37.0-47.0); LYMPHOCYTES # (AUTO) 2.4 10^3/uL (1.5-3.5); LYMPHOCYTES % (AUTO) 29.7 %; MEAN CORPUSCULAR HEMOGLOBIN 29.2 pg (27.0-31.0); MEAN CORPUSCULAR HGB CONC 32.2 g/dL (32.0-36.0); MEAN CORPUSCULAR VOLUME 90.6 fL (81.0-99.0); MEAN PLATELET VOLUME 8.7 fL (7.9-10.8); MONOCYTES # (AUTO) 0.7 10^3/uL (0.0-1.0); MONOCYTES % (AUTO) 8.7 %; NEUTROPHILS # (AUTO) 4.6 10^3/uL (1.5-6.6); NEUTROPHILS % (AUTO) 58.5 %; PLT - PLATELET COUNT 326 10^3/uL (130-450); RED CELL DISTRIBUTION WIDTH 14.2 % (12.0-15.0); WHITE BLOOD COUNT 7.9 x10^3/uL (4.8-10.8)
--- NOTE | 2023-11-10 23:06 | XRAY Report ---
PROCEDURE: Chest 1V INDICATIONS: chest pain TECHNIQUE: One view of the chest was acquired. COMPARISON: None FINDINGS: Surgical changes and devices: None. Lungs and pleura: No pleural effusions or pneumothorax. Lungs are clear. Mediastinum: Mediastinal contours appear normal. Heart size is normal. Bones and chest wall: No suspicious bony lesions. Overlying soft tissues appear unremarkable. IMPRESSION: No acute cardiopulmonary findings Reviewed by: Rafael Oh MD on 11/10/2023 10:05 PM [id number] Approved by: Rafael Oh MD on 11/10/2023 10:05 PM AKDT Station ID: [id number]
[2023-11-10 23:19] LABS: ALBUMIN 4.2 g/dL (3.2-5.5); ALBUMIN/GLOBULIN RATIO 1.3 (1.0-2.2); BILIRUBIN,TOTAL 0.4 mg/dL (0.2-1.0); CALCIUM 10.1 mg/dL (8.5-10.3); CREATININE 0.8 mg/dL (0.6-1.3); POTASSIUM 3.9 mmol/L (3.5-4.5); TOTAL PROTEIN 7.5 g/dL (6.4-8.9)
[2023-11-10 23:39] LABS: TROPONIN I HIGH SENSITIVITY 5.5 ng/L (2.3-14.8)
[2023-11-10] MEDS: MAG HYDROX/AL HYDROX/SIMETH 30 ML UDC PO STA (23:49)
[2023-11-10 23:54] VITALS: BP 171/94; O2SAT 97
== END 2023-11-10 23:59 | disposition home or self-care (01) ==
LOC: ED 21:06
DX: I10 Essential (primary) hypertension (principal)
CPT/HCPCS: 36415; 71045; 80053; 81003; 83690; 84484; 85025; 93005; 99283; 99284; A9270; 81001; 87086